=== PATIENT | male | born 1990 | race Caucasian/White ===

== ENCOUNTER 2018-03-08 22:47 | Emergency (ER) | payer OTHER ==
[~2018-03-08] VITALS: Ht 175.3 cm; Wt 63.5 kg
[~2018-03-08 22:47] MED LIST: AZIT250 PO; Bactrim Ds Tab1 EACH PO; CEPH500 PO; Cleocin HCl300 MG PO; DIPH25 PO; EPIN.3I IM; FAMO20 PO; IBUP600 PO; IBUP800 PO; Naprosyn500 MG PO; PERM5TC TOP; PRED10 PO; RXALBOI INH; Ultram50 MG PO
== END 2018-03-08 23:59 | disposition left against medical advice (07) ==
LOC: ER 22:47
DX: Z53.21 Procedure and treatment not carried out due to patient leaving prior to being seen by health care provider (principal)

== ENCOUNTER → 2018-09-26 | Outpatient (CLI) | payer OTHER ==
[~2018-09-26] MED LIST changes: +IBUP400 PO; +LEVFLO500 PO
[2018-09-27 23:11] LABS: CHLAMYDIA TRACHOMATIS, NAA Negative (Negative); NEISSERIA GONORRHOEAE, NAA Negative (Negative)
== END | disposition home or self-care (01) ==
LOC: LAB SHORT 10:43 → LAB 10:43
PROVIDERS: Family Medicine
DX: R30.0 Dysuria (principal); N50.819 Testicular pain, unspecified
CPT/HCPCS: 87491; 87591

== ENCOUNTER 2018-09-27 10:56 | Emergency (ER) | payer OTHER ==
[~2018-09-27] VITALS: Ht 170.2 cm; Wt 69.4 kg
[~2018-09-27 10:56] MED LIST changes: -IBUP400 PO; -LEVFLO500 PO
[2018-09-27] MEDS ORDERED: LEVFLO500 PO (12:32)
[2018-09-27] MEDS ORDERED: IBUP400 PO (12:32)
== END 2018-09-27 13:31 | disposition home or self-care (01) ==
LOC: ER 10:56
DX: N50.811 Right testicular pain (principal); N50.812 Left testicular pain; Z59.0 Homelessness; F17.210 Nicotine dependence, cigarettes, uncomplicated; Z91.038 Other insect allergy status; Z88.0 Allergy status to penicillin
CPT/HCPCS: 76870; 99284-25

== ENCOUNTER 2018-12-22 13:08 | Emergency (ER) | payer OTHER ==
[~2018-12-22] VITALS: Ht 167.6 cm; Wt 65.8 kg
[~2018-12-22 13:08] MED LIST changes: +IBUP400 PO; +LEVFLO500 PO
[2018-12-22] MEDS ORDERED: CEPH500 PO (13:41)
[2018-12-22] MEDS ORDERED: Bactrim Ds Tab1 EACH PO (13:41)
== END 2018-12-22 13:48 | disposition home or self-care (01) ==
LOC: ER 13:08
DX: L03.113 Cellulitis of right upper limb (principal); Z91.030 Bee allergy status; Z88.0 Allergy status to penicillin
CPT/HCPCS: 99282

== ENCOUNTER 2018-12-24 23:44 | Emergency (ER) | payer OTHER ==
[~2018-12-24] VITALS: Ht 170.2 cm; Wt 65.8 kg
[2018-12-25] MEDS ORDERED: Bactrim Ds Tab1 EACH PO (01:05)
[2018-12-25] MEDS ORDERED: CEPH500 PO (01:05)
== END 2018-12-25 01:15 | disposition home or self-care (01) ==
LOC: ER 23:44
DX: L03.113 Cellulitis of right upper limb (principal); Z91.030 Bee allergy status; Z88.0 Allergy status to penicillin
CPT/HCPCS: 99282

== ENCOUNTER 2019-01-24 13:51 | Emergency (ER) | payer OTHER ==
[~2019-01-24] VITALS: Ht 170.2 cm; Wt 67.1 kg
[2019-01-24] MEDS ORDERED: Vibramycin100 MG PO (15:57)
== END 2019-01-24 16:10 | disposition home or self-care (01) ==
LOC: ER 13:51
DX: L02.414 Cutaneous abscess of left upper limb (principal); L02.413 Cutaneous abscess of right upper limb; L03.114 Cellulitis of left upper limb; L03.113 Cellulitis of right upper limb; Z91.030 Bee allergy status; Z88.0 Allergy status to penicillin
CPT/HCPCS: 10060; 99282-25

== ENCOUNTER 2019-02-28 14:34 | Emergency (ER) | payer OTHER ==
[~2019-02-28] VITALS: Ht 170.2 cm; Wt 65.8 kg
[~2019-02-28 14:34] MED LIST changes: +Vibramycin100 MG PO
== END 2019-02-28 16:59 | disposition left against medical advice (07) ==
LOC: ER 14:34
DX: Z53.21 Procedure and treatment not carried out due to patient leaving prior to being seen by health care provider (principal); L08.9 Local infection of the skin and subcutaneous tissue, unspecified

== ENCOUNTER 2020-02-11 00:41 | Emergency (ER) | payer OTHER ==
[~2020-02-11] VITALS: Ht 170.2 cm; Wt 63.5 kg
== END 2020-02-11 02:52 | disposition home or self-care (01) ==
LOC: ER 00:41
DX: L50.0 Allergic urticaria (principal); Z91.030 Bee allergy status; Z88.0 Allergy status to penicillin
CPT/HCPCS: 36415; 96361; 96374; 96375; 99284-25; J1200; J2930; J7030

== ENCOUNTER 2020-07-30 01:40 | Emergency (ER) | payer OTHER ==
[~2020-07-30] VITALS: Ht 170.2 cm; Wt 64.0 kg
[2020-07-30 02:17] LABS: U Amphetamine Screen DETECTED; U Barbituate Screen Not Detected; U Benzodiazapine Screen Not Detected; U Buprenorphine Screen Not Detected; U Cannabinoids Screen DETECTED; U Cocaine Screen Not Detected; U Methadone Screen Not Detected; U Methamphetamine Screen DETECTED; U Opiates Screen DETECTED; U Oxycodone Screen Not Detected; U Phencyclidine Screen Not Detected; U Propoxyphene Screen Not Detected
[2020-07-30 02:17] LABS: BASOPHILS ABSOLUTE AUTO 0.03 K/mm3 (0.00-0.23); BASOPHILS PERCENT AUTO 0 % (0-2); EOSINOPHILS ABSOLUTE AUTO 0.02 K/mm3 (0.00-0.68); EOSINOPHILS PERCENT AUTO 0 % (0-6); Hemoglobin 15.1 g/dL (13.5-17.5); IMMATURE GRAN ABSOLUTE AUTO 0.02 K/mm3 (0.00-0.10); IMMATURE GRAN PERCENT AUTO 0 % (0-1); LYMPHOCYTES ABSOLUTE AUTO 2.42 K/mm3 (0.84-5.20); LYMPHOCYTES PERCENT AUTO 27 % (21-46); MONOCYTES ABSOLUTE AUTO 0.71 K/mm3 (0.16-1.47); MONOCYTES PERCENT AUTO 8 % (4-13); Mean Corpuscular HGB 31.7 pg (26.0-34.0); Mean Corpuscular HGB Conc 34.3 g/dL (31.5-36.5); Mean Corpuscular Volume 92 fL (80-100); Mean Platelet Volume 9.5 fL (9.1-12.4); NEUTROPHILS ABSOLUTE AUTO 5.73 K/mm3 (1.96-9.15); NEUTROPHILS PERCENT AUTO 64 % (41-73); Platelet Count 163 K/mm3 (150-400); RDW Coefficient Variation 11.9 % (11.7-14.2); RDW Standard Deviation 40.1 fL (35.1-46.3); Red Blood Cell Count 4.77 M/mm3 (4.30-5.90); White Blood Cell Count 8.93 K/mm3 (4.00-11.30)
[2020-07-30 02:37] LABS: Alanine Aminotransfer (ALT/SGP 77 U/L (12-78); Albumin, Blood 3.9 g/dL (3.4-5.0); Albumin/Globulin Ratio 1.1 (0.8-1.8); Alk Phos 54 U/L (50-136); Anion Gap 8 mmol/L (6-16); Aspartate Aminotrans (AST/SGOT 59 U/L (12-37); Blood Urea Nitrogen 20 mg/dL (8-24); CO2, Blood 25 mmol/L (21-32); Calcium, Blood 8.8 mg/dL (8.5-10.1); Chloride, Blood 107 mmol/L (98-108); Creatinine, Blood 0.84 mg/dL (0.60-1.20); Globulin, Blood 3.4 g/dL (2.2-4.0); Glomerular Filtration Rate >60 (60-); Glucose, Blood 102 mg/dL (70-99); Potassium, Blood 3.6 mmol/L (3.5-5.5); Sodium, Blood 140 mmol/L (136-145); Total Protein, Blood 7.3 g/dL (6.4-8.2); Troponin I <0.015 ng/mL (0.000-0.040)
[2020-07-30] MEDS ORDERED: topical cream (19:45)
[2020-07-30] MEDS ORDERED: NIX COMPLET324.86 ML MC (19:46)
== END 2020-07-30 02:56 | disposition home or self-care (01) ==
LOC: ER 01:40
PROVIDERS: Emergency Medicine
DX: T43.621A Poisoning by amphetamines, accidental (unintentional), initial encounter (principal); F19.10 Other psychoactive substance abuse, uncomplicated; Z91.030 Bee allergy status; Z88.0 Allergy status to penicillin
CPT/HCPCS: 36415; 71045; 80053; 84484; 85025; 93005; 93010; 96374; 99284-25; J2060; J7030

== ENCOUNTER 2020-07-30 18:54 | Emergency (ER) | payer OTHER ==
[~2020-07-30] VITALS: Ht 170.2 cm; Wt 65.8 kg
[2020-07-30] MEDS ORDERED: topical cream (19:45)
[2020-07-30] MEDS ORDERED: NIX COMPLET324.86 ML MC (19:46)
== END 2020-07-30 20:09 | disposition home or self-care (01) ==
LOC: ER 18:54
DX: R21 Rash and other nonspecific skin eruption (principal); Z91.030 Bee allergy status; Z88.0 Allergy status to penicillin
CPT/HCPCS: 99282

== ENCOUNTER 2020-08-06 17:18 | Emergency (ER) | payer OTHER ==
[~2020-08-06] VITALS: Ht 170.2 cm; Wt 63.5 kg
[~2020-08-06 17:18] MED LIST changes: +NIX COMPLET324.86 ML MC; +topical cream
[2020-08-06] MEDS ORDERED: ERYT1OIN RIGHTEYE (17:41)
== END 2020-08-06 18:00 | disposition home or self-care (01) ==
LOC: ER 17:18
DX: H10.31 Unspecified acute conjunctivitis, right eye (principal); B96.89 Other specified bacterial agents as the cause of diseases classified elsewhere; T15.91XA Foreign body on external eye, part unspecified, right eye, initial encounter; Y93.89 Activity, other specified
CPT/HCPCS: 99282

== ENCOUNTER 2021-08-06 22:34 | Emergency (ER) | payer OTHER ==
[~2021-08-06] VITALS: Ht 175.3 cm; Wt 63.5 kg
[~2021-08-06 22:34] MED LIST changes: +CLIN300 PO; +ERYT1OIN RIGHTEYE; +HYDR1TAB94 PO
[2021-08-06 22:52] LABS: BASOPHILS ABSOLUTE AUTO 0.02 K/mm3 (0.00-0.23); BASOPHILS PERCENT AUTO 0 % (0-2); EOSINOPHILS ABSOLUTE AUTO 0.09 K/mm3 (0.00-0.68); EOSINOPHILS PERCENT AUTO 2 % (0-6); Hematocrit 45.1 % (37.0-53.0); Hemoglobin 14.8 g/dL (13.5-17.5); IMMATURE GRAN ABSOLUTE AUTO 0.02 K/mm3 (0.00-0.10); IMMATURE GRAN PERCENT AUTO 0 % (0-1); LYMPHOCYTES ABSOLUTE AUTO 2.17 K/mm3 (0.84-5.20); LYMPHOCYTES PERCENT AUTO 39 % (21-46); MONOCYTES ABSOLUTE AUTO 0.43 K/mm3 (0.16-1.47); MONOCYTES PERCENT AUTO 8 % (4-13); Mean Corpuscular HGB 30.8 pg (26.0-34.0); Mean Corpuscular HGB Conc 32.8 g/dL (31.5-36.5); Mean Corpuscular Volume 94 fL (80-100); Mean Platelet Volume 9.2 fL (9.1-12.4); NEUTROPHILS PERCENT AUTO 51 % (41-73); Platelet Count 139 K/mm3 (150-400); RDW Coefficient Variation 12.8 % (11.7-14.2); RDW Standard Deviation 44.1 fL (35.1-46.3); Red Blood Cell Count 4.81 M/mm3 (4.30-5.90); White Blood Cell Count 5.53 K/mm3 (4.00-11.30)
[2021-08-06 23:14] LABS: U Amphetamine Screen DETECTED; U Barbituate Screen Not Detected; U Benzodiazapine Screen Not Detected; U Buprenorphine Screen Not Detected; U Cannabinoids Screen DETECTED; U Cocaine Screen Not Detected; U Methadone Screen Not Detected; U Methamphetamine Screen DETECTED; U Opiates Screen Not Detected; U Oxycodone Screen Not Detected; U Phencyclidine Screen Not Detected; U Propoxyphene Screen Not Detected
[2021-08-06 23:46] LABS: Alanine Aminotransfer (ALT/SGP 83 U/L (12-78); Albumin, Blood 3.5 g/dL (3.4-5.0); Albumin/Globulin Ratio 1.1 (0.8-1.8); Alk Phos 52 U/L (50-136); Anion Gap 7 mmol/L (6-16); Aspartate Aminotrans (AST/SGOT 45 U/L (12-37); Bilirubin, Total 0.5 mg/dL (0.1-1.0); Blood Urea Nitrogen 22 mg/dL (8-24); Bun/Creatinine Ratio 23.8 (12.0-20.0); CO2, Blood 28 mmol/L (21-32); Calcium, Blood 8.4 mg/dL (8.5-10.1); Chloride, Blood 111 mmol/L (98-108); Creatinine, Blood 0.92 mg/dL (0.60-1.20); Ethanol (Alcohol), Blood, Med <3 mg/dL; Globulin, Blood 3.1 g/dL (2.2-4.0); Glomerular Filtration Rate >60 (60-); Glucose, Blood 154 mg/dL (70-99); Potassium, Blood 3.6 mmol/L (3.5-5.5); Salicylate <1.7 mg/dL (2.8-20.0); Sodium, Blood 146 mmol/L (136-145); Total Protein, Blood 6.6 g/dL (6.4-8.2)
[2021-08-06 23:50] LABS: Acetaminophen, Random <2.0 ug/mL (10.0-30.0)
[2021-08-07 00:55] LABS: Influenza A, PCR NEGATIVE (NEGATIVE); Influenza B, PCR NEGATIVE (NEGATIVE); Resp Syncytial Virus, PCR NEGATIVE (NEGATIVE); SARS-Cov-2 (COVID-19) PCR, MMC NEGATIVE (NEGATIVE)
[2021-08-07] MEDS ORDERED: Zithromax250 MG PO (01:12)
== END 2021-08-07 02:13 | disposition home or self-care (01) ==
LOC: ER 22:34
PROVIDERS: Emergency Medicine
DX: F15.129 Other stimulant abuse with intoxication, unspecified (principal); J18.9 Pneumonia, unspecified organism; Z20.822 Contact with and (suspected) exposure to COVID-19; F17.210 Nicotine dependence, cigarettes, uncomplicated; Z88.0 Allergy status to penicillin
CPT/HCPCS: 0241U; 71045; 80053; 82947; 85025; 99284-25; A9270; G0480

== ENCOUNTER 2021-08-21 14:36 | Emergency (ER) | payer OTHER ==
[~2021-08-21] VITALS: Ht 175.3 cm; Wt 63.5 kg
[~2021-08-21 14:36] MED LIST changes: +Zithromax250 MG PO
[2021-08-21] MEDS ORDERED: Cleocin HCl150 MG PO (15:20)
== END 2021-08-21 15:45 | disposition home or self-care (01) ==
LOC: ER 14:36
DX: K04.7 Periapical abscess without sinus (principal); Z91.030 Bee allergy status; Z88.0 Allergy status to penicillin; Z79.899 Other long term (current) drug therapy; F17.210 Nicotine dependence, cigarettes, uncomplicated
CPT/HCPCS: 41800; 99282-25; A9270

== ENCOUNTER 2021-08-22 03:09 | Emergency (ER) | payer OTHER ==
[~2021-08-22] VITALS: Ht 172.7 cm; Wt 63.5 kg
[~2021-08-22 03:09] MED LIST changes: +Cleocin HCl150 MG PO
== END 2021-08-22 04:00 | disposition home or self-care (01) ==
LOC: ER 03:09
DX: K04.7 Periapical abscess without sinus (principal); K02.9 Dental caries, unspecified; Z88.0 Allergy status to penicillin; Z91.030 Bee allergy status; F17.210 Nicotine dependence, cigarettes, uncomplicated
CPT/HCPCS: 99282; A9270

== ENCOUNTER 2021-08-22 16:09 | Emergency (ER) | payer OTHER ==
[~2021-08-22] VITALS: Ht 170.2 cm; Wt 63.5 kg
[2021-08-22 16:31] LABS: BASOPHILS ABSOLUTE AUTO 0.03 K/mm3 (0.00-0.23); BASOPHILS PERCENT AUTO 0 % (0-2); EOSINOPHILS ABSOLUTE AUTO 0.03 K/mm3 (0.00-0.68); EOSINOPHILS PERCENT AUTO 0 % (0-6); Hematocrit 41.1 % (37.0-53.0); Hemoglobin 14.3 g/dL (13.5-17.5); IMMATURE GRAN ABSOLUTE AUTO 0.02 K/mm3 (0.00-0.10); IMMATURE GRAN PERCENT AUTO 0 % (0-1); LYMPHOCYTES ABSOLUTE AUTO 2.29 K/mm3 (0.84-5.20); LYMPHOCYTES PERCENT AUTO 28 % (21-46); MONOCYTES ABSOLUTE AUTO 0.53 K/mm3 (0.16-1.47); MONOCYTES PERCENT AUTO 7 % (4-13); Mean Corpuscular HGB Conc 34.8 g/dL (31.5-36.5); Mean Corpuscular Volume 89 fL (80-100); Mean Platelet Volume 9.3 fL (9.1-12.4); NEUTROPHILS ABSOLUTE AUTO 5.25 K/mm3 (1.96-9.15); NEUTROPHILS PERCENT AUTO 64 % (41-73); Platelet Count 212 K/mm3 (150-400); RDW Coefficient Variation 12.4 % (11.7-14.2); RDW Standard Deviation 40.2 fL (35.1-46.3); Red Blood Cell Count 4.61 M/mm3 (4.30-5.90); White Blood Cell Count 8.15 K/mm3 (4.00-11.30)
[2021-08-22 16:45] LABS: International Normalized Ratio 0.97; Prothrombin Time Results 10.2 Sec (9.7-11.5)
[2021-08-22 16:48] LABS: Alanine Aminotransfer (ALT/SGP 66 U/L (12-78); Albumin, Blood 3.6 g/dL (3.4-5.0); Albumin/Globulin Ratio 1.1 (0.8-1.8); Alk Phos 60 U/L (50-136); Anion Gap 7 mmol/L (6-16); Aspartate Aminotrans (AST/SGOT 37 U/L (12-37); Blood Urea Nitrogen 21 mg/dL (8-24); Bun/Creatinine Ratio 18.8 (12.0-20.0); CO2, Blood 22 mmol/L (21-32); Calcium, Blood 8.5 mg/dL (8.5-10.1); Chloride, Blood 109 mmol/L (98-108); Creatinine, Blood 1.12 mg/dL (0.60-1.20); Ethanol (Alcohol), Blood, Med <3 mg/dL; Globulin, Blood 3.4 g/dL (2.2-4.0); Glomerular Filtration Rate >60 (60-); Glucose, Blood 173 mg/dL (70-99); Potassium, Blood 3.7 mmol/L (3.5-5.5); Sodium, Blood 138 mmol/L (136-145)
[2021-08-22 19:18] LABS: Influenza A, PCR NEGATIVE (NEGATIVE); Influenza B, PCR NEGATIVE (NEGATIVE); Resp Syncytial Virus, PCR NEGATIVE (NEGATIVE); SARS-Cov-2 (COVID-19) PCR, MMC NEGATIVE (NEGATIVE)
== END 2021-08-22 19:25 | disposition short-term general hospital (02) ==
LOC: ER 16:09
PROVIDERS: Student in an Organized Health Care Education/Training Program
DX: S02.611A Fracture of condylar process of right mandible, initial encounter for closed fracture (principal); S01.03XA Puncture wound without foreign body of scalp, initial encounter; S51.841A Puncture wound with foreign body of right forearm, initial encounter; S61.512A Laceration without foreign body of left wrist, initial encounter; S11.91XA Laceration without foreign body of unspecified part of neck, initial encounter; X95.9XXA Assault by unspecified firearm discharge, initial encounter; F17.200 Nicotine dependence, unspecified, uncomplicated; Z88.0 Allergy status to penicillin; Z91.030 Bee allergy status
CPT/HCPCS: 0241U; 12001; 70450; 70486; 70498; 71260; 72125; 73090; 73100; 74177; 80053; 85025; 85610; 90471; 90714; 96365; 99291-25; G0390; G0480; J7120; Q9967

== ENCOUNTER 2021-09-13 04:32 | Emergency (ER) | payer OTHER ==
[~2021-09-13] VITALS: Ht 180.3 cm; Wt 63.5 kg
[2021-09-13] MEDS ORDERED: CLIN150 PO (07:29)
== END 2021-09-13 10:33 | disposition home or self-care (01) ==
LOC: ER 04:32
DX: K04.7 Periapical abscess without sinus (principal); F17.210 Nicotine dependence, cigarettes, uncomplicated; Z88.0 Allergy status to penicillin; Z91.030 Bee allergy status
CPT/HCPCS: 99283; A9270

== ENCOUNTER 2021-11-18 20:15 | Emergency (ER) | payer OTHER ==
[~2021-11-18] VITALS: Ht 175.3 cm; Wt 65.8 kg
[~2021-11-18 20:15] MED LIST changes: +CLIN150 PO
[2021-11-18] MEDS ORDERED: KETO10 PO (21:05)
[2021-11-22] MEDS ORDERED: IBUP800 PO (19:24)
== END 2021-11-18 21:32 | disposition home or self-care (01) ==
LOC: ER 20:15
DX: M77.8 Other enthesopathies, not elsewhere classified (principal); Z91.030 Bee allergy status; Z88.0 Allergy status to penicillin; F17.210 Nicotine dependence, cigarettes, uncomplicated
CPT/HCPCS: 29125; 73110; 96372; 99283-25; J1885

== ENCOUNTER 2022-02-27 15:21 | Emergency (ER) | payer OTHER ==
[~2022-02-27] VITALS: Ht 165.1 cm; Wt 56.7 kg
[~2022-02-27 15:21] MED LIST changes: +KETO10 PO
[2022-02-27] MEDS ORDERED: CLIN150 PO (15:44)
[2022-02-27] MEDS ORDERED: IBU800 MG PO (15:44)
== END 2022-02-27 16:20 | disposition home or self-care (01) ==
LOC: ER 15:21
DX: K02.9 Dental caries, unspecified (principal); F17.210 Nicotine dependence, cigarettes, uncomplicated; Z88.0 Allergy status to penicillin; Z91.038 Other insect allergy status
CPT/HCPCS: 99282

== ENCOUNTER 2022-07-03 17:38 | Emergency (ER) | payer OTHER ==
[~2022-07-03] VITALS: Ht 180.3 cm; Wt 65.8 kg
[~2022-07-03 17:38] MED LIST changes: +IBU800 MG PO
[2022-07-03 18:18] LABS: BASOPHILS ABSOLUTE AUTO 0.02 K/mm3 (0.00-0.23); BASOPHILS PERCENT AUTO 0 % (0-2); EOSINOPHILS ABSOLUTE AUTO 0.01 K/mm3 (0.00-0.68); EOSINOPHILS PERCENT AUTO 0 % (0-6); Hematocrit 40.8 % (37.0-53.0); Hemoglobin 14.3 g/dL (13.5-17.5); IMMATURE GRAN ABSOLUTE AUTO 0.04 K/mm3 (0.00-0.10); IMMATURE GRAN PERCENT AUTO 0 % (0-1); LYMPHOCYTES ABSOLUTE AUTO 1.72 K/mm3 (0.84-5.20); LYMPHOCYTES PERCENT AUTO 14 % (21-46); MONOCYTES ABSOLUTE AUTO 0.88 K/mm3 (0.16-1.47); MONOCYTES PERCENT AUTO 7 % (4-13); Mean Corpuscular HGB 31.1 pg (26.0-34.0); Mean Corpuscular Volume 89 fL (80-100); Mean Platelet Volume 9.2 fL (9.1-12.4); NEUTROPHILS ABSOLUTE AUTO 10.07 K/mm3 (1.96-9.15); NEUTROPHILS PERCENT AUTO 79 % (41-73); Platelet Count 166 K/mm3 (150-400); RDW Coefficient Variation 12.3 % (11.7-14.2); RDW Standard Deviation 39.8 fL (35.1-46.3); White Blood Cell Count 12.74 K/mm3 (4.00-11.30)
[2022-07-03 18:33] LABS: Albumin, Blood 3.7 g/dL (3.4-5.0); Albumin/Globulin Ratio 1.1 (0.8-1.8); Bilirubin, Total 1.6 mg/dL (0.1-1.0); Bun/Creatinine Ratio 12.5 (12.0-20.0); Calcium, Blood 8.7 mg/dL (8.5-10.1); Creatinine, Blood 0.88 mg/dL (0.60-1.20); Globulin, Blood 3.5 g/dL (2.2-4.0); Potassium, Blood 3.9 mmol/L (3.5-5.5); Total Protein, Blood 7.2 g/dL (6.4-8.2)
[2022-07-03] MEDS ORDERED: CEPH500 PO (22:45)
== END 2022-07-03 23:11 | disposition home or self-care (01) ==
LOC: ER 17:38
PROVIDERS: Physician Assistant
DX: L03.114 Cellulitis of left upper limb (principal); F17.210 Nicotine dependence, cigarettes, uncomplicated; Z88.0 Allergy status to penicillin; Z91.030 Bee allergy status
CPT/HCPCS: 36415; 73200; 80053; 85025; J0690; J0696

== ENCOUNTER 2022-07-05 14:09 | Inpatient (IN) | payer OTHER ==
[~2022-07-05] VITALS: Ht 180.3 cm; Wt 64.0 kg
[2022-07-05 15:23] LABS: BASOPHILS ABSOLUTE AUTO 0.02 K/mm3 (0.00-0.23); BASOPHILS PERCENT AUTO 0 % (0-2); EOSINOPHILS ABSOLUTE AUTO 0.06 K/mm3 (0.00-0.68); EOSINOPHILS PERCENT AUTO 1 % (0-6); Hematocrit 40.3 % (37.0-53.0); Hemoglobin 13.5 g/dL (13.5-17.5); IMMATURE GRAN ABSOLUTE AUTO 0.02 K/mm3 (0.00-0.10); IMMATURE GRAN PERCENT AUTO 0 % (0-1); LYMPHOCYTES ABSOLUTE AUTO 1.87 K/mm3 (0.84-5.20); LYMPHOCYTES PERCENT AUTO 21 % (21-46); MONOCYTES ABSOLUTE AUTO 0.64 K/mm3 (0.16-1.47); MONOCYTES PERCENT AUTO 7 % (4-13); Mean Corpuscular HGB 30.3 pg (26.0-34.0); Mean Corpuscular HGB Conc 33.5 g/dL (31.5-36.5); Mean Corpuscular Volume 91 fL (80-100); Mean Platelet Volume 9.7 fL (9.1-12.4); NEUTROPHILS ABSOLUTE AUTO 6.44 K/mm3 (1.96-9.15); NEUTROPHILS PERCENT AUTO 71 % (41-73); Platelet Count 148 K/mm3 (150-400); RDW Coefficient Variation 12.4 % (11.7-14.2); RDW Standard Deviation 41.5 fL (35.1-46.3); Red Blood Cell Count 4.45 M/mm3 (4.30-5.90); White Blood Cell Count 9.05 K/mm3 (4.00-11.30)
[2022-07-05 15:43] LABS: C-REACTIVE PROTEIN, EXT RANGE 9.72 mg/dL (0.000-0.300)
[2022-07-05 15:45] LABS: Albumin, Blood 3.1 g/dL (3.4-5.0); Albumin/Globulin Ratio 0.8 (0.8-1.8); Bilirubin, Total 0.8 mg/dL (0.1-1.0); Bun/Creatinine Ratio 12.1 (12.0-20.0); Calcium, Blood 8.4 mg/dL (8.5-10.1); Creatinine, Blood 0.91 mg/dL (0.60-1.20); Globulin, Blood 3.7 g/dL (2.2-4.0); Potassium, Blood 3.8 mmol/L (3.5-5.5); Total Protein, Blood 6.8 g/dL (6.4-8.2)
--- NOTE | 2022-07-06 01:30 | NUR ---
PT ADMITTED TO FLOOR FROM ER - PT AMBULATORY TO MEDICAL FLOOR BED. PT CHANGED INTO MEDICAL FLOOR GOWN. PT REPORTS HE IS HOMELESS, AND THOUGHT HIS "JACKET MIGHT HAVE FLEAS ON IT." GOWNED UP IN YELLOW GOWN, AND PULLED PT'S JACKET OUT - NO FLEAS SEEN, ALSO PT IS WITHOUT BITES, OR FLEAS PRESENT ON PT. PT'S LEFT ARM IS EDEMATOUS, 1/2 DOLLAR SIZE RED AREA AT LEFT AC SITE. PT REPORTS HE HAS BEEN USING METH SINCE HE WAS 14 YEARS OLD. PT REPORTED CHEST PAIN, AND LEFT ARM PAIN DURING ASSESSMENT, BUT BY THE END OF THE INTERVENTIONS/ASSESSMENT - PT DENIED ANY CHEST PAIN. HE CONTINUED TO REPORT LEFT ARM PAIN - WILL MEDICATE PER EMAR. PT REPORTS MINIMAL SOB - SEE FOLLOW UP VS - SATS WNL ON RA, NO S/S OF RESPIRATORY DISTRESS. PT DENIED ANY OTHER S/S OF CHEST PAIN. PT REPORTED HE DEVELOPED NAUSEA IN ER, AFTER IV ANTIBIOTIC GIVEN. WILL ADMINISTER PO ZOFRAN PRIOR TO IV ANTIBIOTIC ADMINISTRATION PER EMAR. CALL LIGHT WITHIN REACH. FLUIDS AT BEDSIDE. BED IN LOW POSITION.
--- NOTE | 2022-07-06 03:50 | NUR ---
PT AWOKE SCREAMING, REPORTED HE WAS HAVING A NIGHTMARE. AFTER HE AWOKE, HE WAS ABLE TO CALM HINSELF DOWN. HE REPORTS A HISTORY OF NIGHTMARES. NO REQUESTS AT THIS TIME, "I AM FINE." CALL LIGHT AND FLUIDS WITHIN REACH. BED IN LOW POSITION.
--- NOTE | 2022-07-06 04:44 | NUR ---
PT DOES NOT NEED TO BE ISOLATION FOR MERSA - HISTORY OF MERSA APPX 6-7 YEARS AGO, PER PT - AND NO OPEN WOUNDS. REVIEWED THIS INFORMATION WITH LELAND WALLACE.
[2022-07-06 04:58] LABS: BASOPHILS ABSOLUTE AUTO 0.02 K/mm3 (0.00-0.23); BASOPHILS PERCENT AUTO 0 % (0-2); EOSINOPHILS ABSOLUTE AUTO 0.06 K/mm3 (0.00-0.68); EOSINOPHILS PERCENT AUTO 1 % (0-6); Hematocrit 38.5 % (37.0-53.0); Hemoglobin 13.3 g/dL (13.5-17.5); IMMATURE GRAN PERCENT AUTO 0 % (0-1); LYMPHOCYTES ABSOLUTE AUTO 2.03 K/mm3 (0.84-5.20); LYMPHOCYTES PERCENT AUTO 33 % (21-46); MONOCYTES ABSOLUTE AUTO 0.58 K/mm3 (0.16-1.47); MONOCYTES PERCENT AUTO 10 % (4-13); Mean Corpuscular HGB 31.2 pg (26.0-34.0); Mean Corpuscular HGB Conc 34.5 g/dL (31.5-36.5); Mean Corpuscular Volume 90 fL (80-100); Mean Platelet Volume 9.6 fL (9.1-12.4); NEUTROPHILS ABSOLUTE AUTO 3.44 K/mm3 (1.96-9.15); NEUTROPHILS PERCENT AUTO 56 % (41-73); Platelet Count 145 K/mm3 (150-400); RDW Coefficient Variation 12.8 % (11.7-14.2); RDW Standard Deviation 41.9 fL (35.1-46.3); Red Blood Cell Count 4.26 M/mm3 (4.30-5.90); White Blood Cell Count 6.13 K/mm3 (4.00-11.30)
[2022-07-06 05:15] LABS: Bun/Creatinine Ratio 11.9 (12.0-20.0); Calcium, Blood 8.6 mg/dL (8.5-10.1); Creatinine, Blood 0.84 mg/dL (0.60-1.20); Potassium, Blood 3.8 mmol/L (3.5-5.5)
--- NOTE | 2022-07-06 05:19 | NUR ---
SHIFT SUMMARY - NO ACUTE CHANGES SINCE ADMIT LAST NOC. PT AWOKE WITH A NIGHTMARE TONIGHT, BUT WAS ABLE TO CALM HIMSELF AFTER HE WAS FULLY AWAKE. PT HAS A HISTORY OF METH ABUSE. PT DID REPORT CHEST PAIN, BUT THEN DENIED ANY CHEST PAIN AT END OF ASSESSMENT. PT MEDICATED X1 WITH TYLENOL - SEE EMAR. PT TOLERATED PO FLUIDS/FOOD WITHOUT COMPLICATIONS. PT HAS BEEN SLEEPING FOR APPX 2 HOURS TONIGHT. CALL LIGHT WITHIN REACH. BED IN LOW POSITION. FLUIDS AT BEDSIDE. WILL CONTINUE TO MONITOR UNTIL AM SHIFT CHANGE.
[2022-07-06 07:38] LABS: U Amphetamine Screen DETECTED; U Barbituate Screen Not Detected; U Benzodiazapine Screen Not Detected; U Buprenorphine Screen Not Detected; U Cannabinoids Screen DETECTED; U Cocaine Screen Not Detected; U Methadone Screen Not Detected; U Methamphetamine Screen DETECTED; U Opiates Screen Not Detected; U Oxycodone Screen Not Detected; U Phencyclidine Screen Not Detected; U Propoxyphene Screen Not Detected
--- NOTE | 2022-07-06 16:00 | NUR ---
PT LEFT AMA 1414- PT HAD BEEN A/O X4, VERBAL AND PLEASANT, INTERACTING APPROPRIATE WITH STAFF ALL AM UNTIL APPROX 1300, PT ASKED RN TO MAKE HIM A CONFIDENTIAL PT- HE STATED "IF SOMEONE WAS GOING TO COME KILL ME, WOULD THE NURSES LET ME KNOW?" RN ASKED IF HE HAD ENEMIES THAT ARE LOOKING FOR HIM. HE SAID "I DONT KNOW, JUST PEOPLE THAT MAY HAVE THOUGHT I DID SOMETHING I DIDN'T DO". ABOUT AN HOUR LATER PT CAME OUT INTO [place] UPSET "IM LEAVING- IM SICK OF BEING MIND FUCKED- I KNOW THERE IS A PLAN- THEY WILL PROBABLY JUST SHOOT ME IM WALKING OUTSIDE- BUT IM READY TO ." KESHIA WENT TO GET AMA FORM HE STATED HE WOULD SIGN, BUT THAN SAID IM OUR OF HERE AND STARTED OUT- REDIRECTED TO ELEVATOR. THREW SHIRT IN THE TRASH AND LEFT WITHOUT SIGNING FORM. RN HAD A CHANCE TO GET IV OUT BEFORE HE LEFT. RN NOTIFIED MED STUDENT AND CHARTING CLERK. ALSO CALLED SECURITY AND MADE A REPORT.
== END 2022-07-06 14:17 | disposition left against medical advice (07) | DRG 867 ==
LOC: ER 14:09 → MEDS 14:10
PROVIDERS: Family Medicine; Internal Medicine; Physician Assistant; ADMIT Internal Medicine
DX: T80.29XA Infection following other infusion, transfusion and therapeutic injection, initial encounter (principal); A41.9 Sepsis, unspecified organism; L03.114 Cellulitis of left upper limb; I82.612 Acute embolism and thrombosis of superficial veins of left upper extremity; B19.20 Unspecified viral hepatitis C without hepatic coma; F15.10 Other stimulant abuse, uncomplicated; F22 Delusional disorders; F17.210 Nicotine dependence, cigarettes, uncomplicated; F12.10 Cannabis abuse, uncomplicated; Z20.822 Contact with and (suspected) exposure to COVID-19; Z59.00 Homelessness unspecified; Z98.890 Other specified postprocedural states; Z88.0 Allergy status to penicillin; Z91.038 Other insect allergy status; Z71.51 Drug abuse counseling and surveillance of drug abuser; Z79.2 Long term (current) use of antibiotics; Z79.899 Other long term (current) drug therapy
CPT/HCPCS: 36415; 71260; 73201; 80048; 80053; 83605; 84145; 84484; 85025; 86140; 93005; 93010; 93971; 96376; A9270; G0378; J0690; Q9967

== ENCOUNTER 2022-07-07 09:30 | Observation (INO) | payer OTHER ==
[~2022-07-07] VITALS: Ht 180.3 cm; Wt 63.6 kg
[2022-07-07 10:44] LABS: BASOPHILS ABSOLUTE AUTO 0.02 K/mm3 (0.00-0.23); BASOPHILS PERCENT AUTO 0 % (0-2); EOSINOPHILS ABSOLUTE AUTO 0.07 K/mm3 (0.00-0.68); EOSINOPHILS PERCENT AUTO 1 % (0-6); Hematocrit 46.1 % (37.0-53.0); Hemoglobin 15.2 g/dL (13.5-17.5); IMMATURE GRAN ABSOLUTE AUTO 0.01 K/mm3 (0.00-0.10); IMMATURE GRAN PERCENT AUTO 0 % (0-1); LYMPHOCYTES ABSOLUTE AUTO 1.62 K/mm3 (0.84-5.20); LYMPHOCYTES PERCENT AUTO 24 % (21-46); MONOCYTES ABSOLUTE AUTO 0.53 K/mm3 (0.16-1.47); MONOCYTES PERCENT AUTO 8 % (4-13); Mean Corpuscular HGB 30.3 pg (26.0-34.0); Mean Corpuscular Volume 92 fL (80-100); Mean Platelet Volume 9.3 fL (9.1-12.4); NEUTROPHILS ABSOLUTE AUTO 4.65 K/mm3 (1.96-9.15); NEUTROPHILS PERCENT AUTO 67 % (41-73); Platelet Count 188 K/mm3 (150-400); RDW Coefficient Variation 12.4 % (11.7-14.2); RDW Standard Deviation 42.1 fL (35.1-46.3); Red Blood Cell Count 5.02 M/mm3 (4.30-5.90)
[2022-07-07 11:57] LABS: Albumin, Blood 3.4 g/dL (3.4-5.0); Albumin/Globulin Ratio 0.8 (0.8-1.8); Bun/Creatinine Ratio 12.5 (12.0-20.0); Calcium, Blood 9.9 mg/dL (8.5-10.1); Creatinine, Blood 0.72 mg/dL (0.60-1.20); Globulin, Blood 4.2 g/dL (2.2-4.0); Total Protein, Blood 7.6 g/dL (6.4-8.2)
--- NOTE | 2022-07-07 15:10 | NUR ---
PT ARRIVED TO UNIT FROM ER PT ABLE TO SELF TRANSFER TO BED FROM , C/O PAIN PLAN TO CONTACT PT ORIENTED TO ROOM/CALL LIGHT.
--- NOTE | 2022-07-07 19:39 | NUR ---
SHIFT SUMMARY PT A&OX4 AND IN PLEASENT MOOD. C/O PAIN-MEDICATED PER EMAR-PT C/O CONTINUED PAIN. TOLERATING PO INTAKE WELL. SHOWERED THIS SHIFT. AMBULATING IND W/ STEADY GAIT. CALL LIGHT W/IN REACH.
== END 2022-07-08 03:17 | disposition left against medical advice (07) ==
LOC: ER 09:30 → MEDS 09:31
PROVIDERS: Physician Assistant; ADMIT Internal Medicine
DX: A41.9 Sepsis, unspecified organism (principal); L03.114 Cellulitis of left upper limb; I80.8 Phlebitis and thrombophlebitis of other sites; F17.210 Nicotine dependence, cigarettes, uncomplicated; B19.20 Unspecified viral hepatitis C without hepatic coma; F15.10 Other stimulant abuse, uncomplicated; Z53.29 Procedure and treatment not carried out because of patient's decision for other reasons; Z88.0 Allergy status to penicillin; Z91.038 Other insect allergy status
CPT/HCPCS: 36415; 80053; 85025; 96375; 96376; A9270; G0378; J0690; J1885

== ENCOUNTER 2022-08-11 19:27 | Emergency (ER) | payer OTHER ==
[~2022-08-11] VITALS: Ht 170.2 cm; Wt 63.5 kg
[2022-08-11 20:25] LABS: Influenza A, PCR NEGATIVE (NEGATIVE); Influenza B, PCR NEGATIVE (NEGATIVE); Resp Syncytial Virus, PCR NEGATIVE (NEGATIVE); SARS-Cov-2 (COVID-19) PCR, MMC NEGATIVE (NEGATIVE)
== END 2022-08-11 22:36 | disposition home or self-care (01) ==
LOC: ER 19:27
PROVIDERS: Physician Assistant
DX: J06.9 Acute upper respiratory infection, unspecified (principal); F17.210 Nicotine dependence, cigarettes, uncomplicated; Z88.0 Allergy status to penicillin; Z91.030 Bee allergy status; Z20.822 Contact with and (suspected) exposure to COVID-19
CPT/HCPCS: 0241U; A9270

== ENCOUNTER 2023-06-05 14:54 | Emergency (ER) | payer OTHER ==
[~2023-06-05] VITALS: Ht 162.6 cm; Wt 65.8 kg
[2023-06-05 15:02] VITALS: BP 135/62
== END 2023-06-05 15:08 | disposition home or self-care (01) ==
LOC: ER 14:54
DX: Z02.89 Encounter for other administrative examinations (principal); F17.210 Nicotine dependence, cigarettes, uncomplicated; Z91.038 Other insect allergy status; Z88.0 Allergy status to penicillin
CPT/HCPCS: 99282

== ENCOUNTER 2023-09-27 19:38 | Emergency (ER) | payer OTHER ==
[~2023-09-27] VITALS: Ht 167.6 cm; Wt 65.8 kg
[2023-09-27 20:36] VITALS: BP 139/104
[2023-09-27] MEDS ORDERED: Ketorolac Tromethamine 30mg Vial IV ONE (21:15)
[2023-09-27] MEDS ORDERED: Clindamycin 600mg in D5W 50 ML IV ONE (21:15)
[2023-09-27 21:22] LABS: BASOPHILS ABSOLUTE AUTO 0.03 K/mm3 (0.00-0.23); BASOPHILS PERCENT AUTO 0 % (0-2); EOSINOPHILS ABSOLUTE AUTO 0.07 K/mm3 (0.00-0.68); EOSINOPHILS PERCENT AUTO 1 % (0-6); Hemoglobin 14.2 g/dL (13.5-17.5); IMMATURE GRAN ABSOLUTE AUTO 0.02 K/mm3 (0.00-0.10); IMMATURE GRAN PERCENT AUTO 0 % (0-1); LYMPHOCYTES ABSOLUTE AUTO 2.21 K/mm3 (0.84-5.20); LYMPHOCYTES PERCENT AUTO 29 % (21-46); MONOCYTES ABSOLUTE AUTO 0.58 K/mm3 (0.16-1.47); MONOCYTES PERCENT AUTO 8 % (4-13); Mean Corpuscular HGB 30.1 pg (26.0-34.0); Mean Corpuscular HGB Conc 34.6 g/dL (31.5-36.5); Mean Corpuscular Volume 87 fL (80-100); Mean Platelet Volume 9.2 fL (9.1-12.4); NEUTROPHILS ABSOLUTE AUTO 4.63 K/mm3 (1.96-9.15); NEUTROPHILS PERCENT AUTO 61 % (41-73); Platelet Count 189 K/mm3 (150-400); RDW Coefficient Variation 12.1 % (11.7-14.2); RDW Standard Deviation 38.5 fL (35.1-46.3); Red Blood Cell Count 4.72 M/mm3 (4.30-5.90); White Blood Cell Count 7.54 K/mm3 (4.00-11.30)
[2023-09-27 21:40] LABS: Albumin, Blood 3.5 g/dL (3.4-5.0); Albumin/Globulin Ratio 0.9 (0.8-1.8); Bilirubin, Total 0.8 mg/dL (0.1-1.0); Bun/Creatinine Ratio 22.4 (12.0-20.0); Calcium, Blood 8.8 mg/dL (8.5-10.1); Creatinine, Blood 0.76 mg/dL (0.60-1.20); Globulin, Blood 3.7 g/dL (2.2-4.0); Total Protein, Blood 7.2 g/dL (6.4-8.2)
[2023-09-27] MEDS ORDERED: Cleocin HCl150 MG PO (21:47)
== END 2023-09-27 23:06 | disposition home or self-care (01) ==
LOC: ER 19:38
PROVIDERS: Physician Assistant
DX: L03.113 Cellulitis of right upper limb (principal); F17.210 Nicotine dependence, cigarettes, uncomplicated; Z88.0 Allergy status to penicillin; Z91.030 Bee allergy status
CPT/HCPCS: 80053; 85025; 96374; 96375; 99283-25; J1885

== ENCOUNTER 2023-09-28 21:09 | Emergency (ER) | payer OTHER ==
[~2023-09-28] VITALS: Ht 170.2 cm; Wt 65.8 kg
[2023-09-28 21:14] VITALS: BP 131/81
[2023-09-28] MEDS ORDERED: Clindamycin HCl 150 MG Cap PO ONE (21:20)
[2023-09-28] MEDS ORDERED: Ketorolac Tromethamine 30mg Vial IM ONE (21:20)
== END 2023-09-28 21:44 | disposition home or self-care (01) ==
LOC: ER 21:09
DX: Z76.0 Encounter for issue of repeat prescription (principal); L03.113 Cellulitis of right upper limb; L03.011 Cellulitis of right finger; Z87.891 Personal history of nicotine dependence; Z88.0 Allergy status to penicillin; Z91.030 Bee allergy status
CPT/HCPCS: 96372; 99281-25; A9270; J1885

== ENCOUNTER 2023-11-28 10:14 | Emergency (ER) | payer OTHER ==
[~2023-11-28] VITALS: Ht 170.2 cm; Wt 65.8 kg
[~2023-11-28 10:14] MED LIST changes: +SULTRIDS PO
[2023-11-28 10:30] VITALS: BP 126/89
[2023-11-28] MEDS ORDERED: Bactrim Ds Tab1 EACH PO (10:53)
== END 2023-11-28 11:01 | disposition home or self-care (01) ==
LOC: ER 10:14
DX: L03.113 Cellulitis of right upper limb (principal); F17.210 Nicotine dependence, cigarettes, uncomplicated; Z91.038 Other insect allergy status; Z88.0 Allergy status to penicillin; Z75.8 Other problems related to medical facilities and other health care
CPT/HCPCS: 99282

== ENCOUNTER 2023-12-12 21:26 | Emergency (ER) | payer OTHER ==
[~2023-12-12] VITALS: Ht 170.2 cm; Wt 63.5 kg
[2023-12-12 21:45] VITALS: BP 128/91
[2023-12-12 22:45] LABS: BASOPHILS ABSOLUTE AUTO 0.02 K/mm3 (0.00-0.23); BASOPHILS PERCENT AUTO 0 % (0-2); EOSINOPHILS ABSOLUTE AUTO 0.05 K/mm3 (0.00-0.68); EOSINOPHILS PERCENT AUTO 1 % (0-6); Hemoglobin 15.1 g/dL (13.5-17.5); IMMATURE GRAN ABSOLUTE AUTO 0.01 K/mm3 (0.00-0.10); IMMATURE GRAN PERCENT AUTO 0 % (0-1); LYMPHOCYTES ABSOLUTE AUTO 2.25 K/mm3 (0.84-5.20); LYMPHOCYTES PERCENT AUTO 36 % (21-46); MONOCYTES ABSOLUTE AUTO 0.56 K/mm3 (0.16-1.47); MONOCYTES PERCENT AUTO 9 % (4-13); Mean Corpuscular HGB 29.9 pg (26.0-34.0); Mean Corpuscular HGB Conc 34.3 g/dL (31.5-36.5); Mean Corpuscular Volume 87 fL (80-100); Mean Platelet Volume 9.4 fL (9.1-12.4); NEUTROPHILS ABSOLUTE AUTO 3.33 K/mm3 (1.96-9.15); NEUTROPHILS PERCENT AUTO 54 % (41-73); Platelet Count 208 K/mm3 (150-400); RDW Coefficient Variation 14.1 % (11.7-14.2); RDW Standard Deviation 44.7 fL (35.1-46.3); Red Blood Cell Count 5.05 M/mm3 (4.30-5.90); White Blood Cell Count 6.22 K/mm3 (4.00-11.30)
[2023-12-12 23:13] LABS: Albumin, Blood 3.9 g/dL (3.4-5.0); Albumin/Globulin Ratio 1.1 (0.8-1.8); Bilirubin, Total 1.1 mg/dL (0.1-1.0); Bun/Creatinine Ratio 17.4 (12.0-20.0); Creatinine, Blood 0.98 mg/dL (0.60-1.20); Globulin, Blood 3.4 g/dL (2.2-4.0); Potassium, Blood 3.8 mmol/L (3.5-5.5); Total Protein, Blood 7.3 g/dL (6.4-8.2)
[2023-12-12] MEDS ORDERED: Ketorolac Tromethamine 10 MG Tab PO ONE (23:35)
== END 2023-12-12 23:53 | disposition home or self-care (01) ==
LOC: ER 21:26
PROVIDERS: Nurse Practitioner
DX: R51.9 Headache, unspecified (principal); F17.210 Nicotine dependence, cigarettes, uncomplicated; Z88.0 Allergy status to penicillin; Z91.030 Bee allergy status
CPT/HCPCS: 80053; 85025; 99283; A9270

== ENCOUNTER 2023-12-19 07:40 | Inpatient (IN) | payer OTHER ==
[2023-12-19] VITALS (28 sets, daily range): BP systolic 90–123; BP diastolic 48–79
[~2023-12-19] VITALS: Ht 170.2 cm; Wt 67.1 kg
[2023-12-19] MEDS ORDERED: NS 1,000 ML IV SCH ×3 (08:25→15:00)
[2023-12-19] MEDS ORDERED: Ondansetron HCl 2 MG / ML 2ML Vial IV ONE (08:25)
[2023-12-19] MEDS ORDERED: Ketorolac Tromethamine 30mg Vial IV ONE (09:05)
[2023-12-19 09:25] LABS: Hemoglobin 14.1 g/dL (13.5-17.5); Mean Corpuscular HGB 29.7 pg (26.0-34.0); Mean Corpuscular HGB Conc 33.6 g/dL (31.5-36.5); Mean Corpuscular Volume 88 fL (80-100); Mean Platelet Volume 9.7 fL (9.1-12.4); Platelet Count 118 K/mm3 (150-400); RDW Coefficient Variation 13.8 % (11.7-14.2); RDW Standard Deviation 44.8 fL (35.1-46.3); Red Blood Cell Count 4.75 M/mm3 (4.30-5.90); White Blood Cell Count 13.59 K/mm3 (4.00-11.30)
[2023-12-19 09:46] LABS: BAND PERCENT MAN 14 % (0-8); BASOPHILS PERCENT MAN 0 % (0-2); EOSINOPHILS PERCENT MAN 0 % (0-6); LYMPHOCYTES ABSOLUTE MAN 0.54 K/mm3 (0.84-5.20); LYMPHOCYTES PERCENT MAN 4 % (21-46); MONOCYTES ABSOLUTE MAN 0.95 K/mm3 (0.16-1.47); MONOCYTES PERCENT MAN 7 % (4-13); NEUTROPHILS ABSOLUTE MAN 12.09 K/mm3 (1.96-9.15); SEG NEUTROPHILS PERCENT MAN 75 % (41-73); TOTAL CELLS COUNTED 100
[2023-12-19 09:50] LABS: Albumin, Blood 3.4 g/dL (3.4-5.0); Bilirubin, Total 2.6 mg/dL (0.1-1.0); Bun/Creatinine Ratio 17.9 (12.0-20.0); Calcium, Blood 8.4 mg/dL (8.5-10.1); Creatinine, Blood 1.17 mg/dL (0.60-1.20); Globulin, Blood 3.3 g/dL (2.2-4.0); Total Protein, Blood 6.7 g/dL (6.4-8.2)
[2023-12-19 10:55] LABS: Influenza A, PCR NEGATIVE (NEGATIVE); Influenza B, PCR NEGATIVE (NEGATIVE); Resp Syncytial Virus, PCR NEGATIVE (NEGATIVE); SARS-Cov-2 (COVID-19) PCR, MMC NEGATIVE (NEGATIVE)
[2023-12-19 12:50] LABS: Source, Urine Clean Catch
[2023-12-19 12:54] LABS: Appearance, Urine Clear (Clear); Blood, Urine Neg (Neg); Color, Urine Amber (P-Yellow); Glucose Qualitative, Urine Neg (Neg); Ketones, Urine 1+ (Neg); Leukocyte Esterase, Urine 1+ (Neg); Nitrite, Urine Neg (Neg); Protein, Urine 2+ (Neg); Specific Gravity, Urine 1.005 (1.003-1.022); Urobilinogen, Urine 2+ (Normal); pH, Urine 6.5 (5.0-8.0)
[2023-12-19 13:06] LABS: Bilirubin, Urine 1+ (Neg)
[2023-12-19 13:07] LABS: Red Blood Cells, Urine 0-2 /hpf (0-2); Squamous Epithelial Cells Few /hpf (Few)
[2023-12-19 13:08] LABS: Bacteria Few /hpf; Mucus Light (0-Heavy)
[2023-12-19] MEDS ORDERED: CefTRIAXone Sodium 1,000 MG in NS 50 ML IV ONE (13:30)
[2023-12-19] MEDS ORDERED: FentaNYL Citrate 50 MCG/ML 2 ML Injection IV PRN (16:00)
[2023-12-19] MEDS ORDERED: Ondansetron HCl 2 MG / ML 2ML Vial IV PRN (16:00)
[2023-12-19] MEDS ORDERED: Lactated Ringer's 1,000 ML IV SCH (16:05)
[2023-12-19] MEDS ORDERED: Pantoprazole Sodium 40 MG Injection IV SCH (16:30)
--- NOTE | 2023-12-19 18:35 | NUR ---
ASSUMPTION OF CARE/ SHIFT SUMMARY PATIENT ARRIVED TO ICU FROM ED AT 1800. PATIENT ALERT AND ORIENTED X 4. TEMP 99.3 DEGREES FAHRENHEIT. PATIENT PLEASANT AND COOPERATIVE. PATIENT GIVEN PRN FENTANYL FOR COMPLAINTS OF 10/10 PAIN IN LOWER BACK, LEGS AND FEET THAT HE STATED THIS AM. PATIENT SATTING 90% AND GREATER ON RA. PATIENT IN SR, HR 80S TO 90S. SBP 90S TO 120S. PATIENT ON LEVOPHED AT 3 MCG/ MINUTE. GI WNL. PATIENT EATING DINNER IN BED AT THIS TIME. PATIENT REPORTS BURNING WITH URINATION AND BLOOD IN URINE TODAY BUT HAS NOT VOIDED YET THIS SHIFT. ED RN REPORTS PATIENT ONLY VOIDED 100 MLS IN ED. LR INFUSING AT 125 MLS/ HOUR. PATIENT ORIENTED TO UNIT, ROOM AND CALL LIGHT. BED LOW, CALL LIGHT IN REACH. WILL GIVE RAILWAY TRACK WORKER RN REPORT SHORTLY.
[2023-12-19 19:30] LABS: U Amphetamine Screen DETECTED; U Barbituate Screen Not Detected; U Benzodiazapine Screen Not Detected; U Buprenorphine Screen Not Detected; U Cannabinoids Screen DETECTED; U Cocaine Screen Not Detected; U Methadone Screen Not Detected; U Methamphetamine Screen DETECTED; U Opiates Screen Not Detected; U Oxycodone Screen Not Detected; U Phencyclidine Screen Not Detected
--- NOTE | 2023-12-19 20:43 | NUR ---
ASSUME CARE PT RESTING IN BED, AWAKE AND ORIENTED. PT REQUESTING FOOD AND TOLERATING FOOD AND WATER WELL AT THIS TIME. PT LEVOPHED ON 3 MCG DURING BSSR, REDUCED TO 2MCG, SEE FLOWSHEET. PT DOES ENDORSE ONGOING PAIN IN LEGS AND BACK AT THIS TIME, PT DID RECEIVE PAIN MEDICATION ON DAY SHIFT, UNABLE TO RECEIVE SECOND DOSE AT THIS TIME. PT STATES IT SOMETIMES FEELS THOUGH "SHINS ARE BEING SPLIT APART" AND DOES STATE THAT THERE IS ALTERATION OF SENSATION IN LOWER EXTREMITIES WITH THE LANGFORD/LEG PAIN. PT IS ABLE TO MOVE SELF WELL IN BED WITH NO ASSISTANCE. PT PLEASANT AND COOPERATIVE, ABLE TO MAKE NEEDS KNOWN. PLANS TO TITRATE DOWN/OFF LEVOPHED OVERNIGHT.
[2023-12-20] VITALS (27 sets, daily range): BP systolic 95–119; BP diastolic 49–75
[2023-12-20] MEDS ORDERED: MetroNIDAZOLE 500MG/NS 100 ml 100 ML IV SCH
[2023-12-20] MEDS ORDERED: SUMAtriptan succinate 50 MG Tab PO ONE (00:05)
[2023-12-20 04:16] LABS: BASOPHILS ABSOLUTE AUTO 0.02 K/mm3 (0.00-0.23); BASOPHILS PERCENT AUTO 0 % (0-2); EOSINOPHILS ABSOLUTE AUTO 0.06 K/mm3 (0.00-0.68); EOSINOPHILS PERCENT AUTO 1 % (0-6); Hematocrit 35.6 % (37.0-53.0); Hemoglobin 11.8 g/dL (13.5-17.5); IMMATURE GRAN ABSOLUTE AUTO 0.05 K/mm3 (0.00-0.10); IMMATURE GRAN PERCENT AUTO 1 % (0-1); LYMPHOCYTES ABSOLUTE AUTO 1.36 K/mm3 (0.84-5.20); LYMPHOCYTES PERCENT AUTO 16 % (21-46); MONOCYTES ABSOLUTE AUTO 0.65 K/mm3 (0.16-1.47); MONOCYTES PERCENT AUTO 8 % (4-13); Mean Corpuscular HGB 29.9 pg (26.0-34.0); Mean Corpuscular HGB Conc 33.1 g/dL (31.5-36.5); Mean Corpuscular Volume 90 fL (80-100); Mean Platelet Volume 10.8 fL (9.1-12.4); NEUTROPHILS ABSOLUTE AUTO 6.51 K/mm3 (1.96-9.15); NEUTROPHILS PERCENT AUTO 75 % (41-73); Platelet Count 88 K/mm3 (150-400); RDW Coefficient Variation 14.6 % (11.7-14.2); RDW Standard Deviation 47.9 fL (35.1-46.3); Red Blood Cell Count 3.95 M/mm3 (4.30-5.90); White Blood Cell Count 8.65 K/mm3 (4.00-11.30)
[2023-12-20 04:33] LABS: Albumin, Blood 2.4 g/dL (3.4-5.0); Albumin/Globulin Ratio 0.9 (0.8-1.8); Bilirubin, Total 0.8 mg/dL (0.1-1.0); Bun/Creatinine Ratio 24.1 (12.0-20.0); Calcium, Blood 7.6 mg/dL (8.5-10.1); Creatinine, Blood 0.91 mg/dL (0.60-1.20); Globulin, Blood 2.8 g/dL (2.2-4.0); Potassium, Blood 3.7 mmol/L (3.5-5.5); Total Protein, Blood 5.2 g/dL (6.4-8.2)
--- NOTE | 2023-12-20 06:21 | NUR ---
SHIFT SUMMARY PT CONTINUES TO C/O PAIN OVERNIGHT, STATES THAT FENTANYL "HELPS TAKE THE EDGE OFF BUT IT DOES NOT LAST LONG." PT REQUESTED DILAUDID OR OXYCODONE, WHICH IS NOT ORDERED FOR PT. PT DID CONTINUE TO RECEIVE FENTANYL DOSES ORDERED PER PT REQUEST. PT DID NOT SLEEP MUCH OVERNIGHT, BUT WAS NOT RESTLESS. ABLE TO TITRATE OFF LEVO AND REMAIN OFF LEVO, SEE FLOWSHEET. PT REMAINS WITH LR 150ML/HR INFUSING. PINKISH BRUISING ABOVE RIGHT AC PIV SEEMS IMPROVED SINCE CONTINUOUS INFUSIONS WERE MOVED TO LEFT PIV. PT REQUESTED MANY SNACKS OVERNIGHT, APPETITE EXCELLENT. PT ALSO CONTINUES TO TOLERATE LIQUID PO INTAKE. PT DID NOT HAVE A BM OVERNIGHT, USED URINAL TWICE INDEPENDENTLY AFTER SETUP WITH KRISTEL COLORED CONCENTRATED URINE. PT REMAINS COOPERATIVE AND CALM.
--- NOTE | 2023-12-20 07:07 | NUR ---
PT AMA PT WAS NOTED TO BE DISCONNECTED FROM MONITOR. UPON ENTERING ROOM RN NOTED PT GETTING DRESSED. PT STATED NEEDING TO LEAVE, PT CLAIMS HAS A JOB TO GET TO THIS MORNING BY 10AM. MEDICAL AND SCIENTIFIC ILLUSTRATOR HEIDI NOTIFIED, AMA PAPERWORK GATHERED. PT GATHERED ALL BELONGINGS INCLUDING PT BELONGS BAG, CLOTHING, AND BOOTS. MD GALLEGOS NOTIFIED VIA TELEPHONE AT 0654. PT SIGNED AMA FORM, FORM IS WITH PT CHART. PT PIV'S DC'D AT THIS TIME. PT SITTING IN CHAIR IN ICU 9 DURING CHANGE OF SHIFT. PT LEFT UNIT AT 0718 WITH BELONGINGS.
[2023-12-20] MEDS ORDERED: CefTRIAXone Sodium 1,000 MG in NS 100 ML IV SCH (18:00)
[2023-12-21] MEDS ORDERED: LIDO700A20 TOP (03:49)
== END 2023-12-20 07:20 | disposition left against medical advice (07) | DRG 871 ==
LOC: ER 07:40 → ICUE 17:32
PROVIDERS: Emergency Medicine; Physician Assistant; ADMIT Family Medicine
PROC: 3E03329 Introduction of Other Anti-infective into Peripheral Vein, Percutaneous Approach (ICD-10-PCS; principal; 2023-12-19)
PROC: 3E033XZ Introduction of Vasopressor into Peripheral Vein, Percutaneous Approach (ICD-10-PCS; 2023-12-19)
DX: A41.9 Sepsis, unspecified organism (principal); R65.21 Severe sepsis with septic shock; N39.0 Urinary tract infection, site not specified; Z59.00 Homelessness unspecified; B19.20 Unspecified viral hepatitis C without hepatic coma; F17.210 Nicotine dependence, cigarettes, uncomplicated; F15.90 Other stimulant use, unspecified, uncomplicated; K52.9 Noninfective gastroenteritis and colitis, unspecified; D69.6 Thrombocytopenia, unspecified; R94.5 Abnormal results of liver function studies; Z53.29 Procedure and treatment not carried out because of patient's decision for other reasons; Z88.0 Allergy status to penicillin; Z91.038 Other insect allergy status; Z98.890 Other specified postprocedural states
CPT/HCPCS: 0241U; 36415; 74177; 80053; 81001; 83605; 83690; 84145; 85025; 87086; 96361; 96365-59; 96367; 96375; 99285-25; A9270; C9113; J0696; J1885; J2405; J3010; J7030; J7060; J7120; Q9967

== ENCOUNTER 2023-12-20 21:45 | Emergency (ER) | payer OTHER ==
[~2023-12-20] VITALS: Ht 170.2 cm; Wt 65.8 kg
[2023-12-21 01:35] LABS: BASOPHILS ABSOLUTE AUTO 0.02 K/mm3 (0.00-0.23); BASOPHILS PERCENT AUTO 0 % (0-2); EOSINOPHILS PERCENT AUTO 1 % (0-6); Hematocrit 36.8 % (37.0-53.0); Hemoglobin 12.4 g/dL (13.5-17.5); IMMATURE GRAN ABSOLUTE AUTO 0.02 K/mm3 (0.00-0.10); IMMATURE GRAN PERCENT AUTO 0 % (0-1); LYMPHOCYTES ABSOLUTE AUTO 1.56 K/mm3 (0.84-5.20); LYMPHOCYTES PERCENT AUTO 21 % (21-46); MONOCYTES ABSOLUTE AUTO 0.67 K/mm3 (0.16-1.47); MONOCYTES PERCENT AUTO 9 % (4-13); Mean Corpuscular HGB 29.5 pg (26.0-34.0); Mean Corpuscular HGB Conc 33.7 g/dL (31.5-36.5); Mean Corpuscular Volume 87 fL (80-100); Mean Platelet Volume 9.8 fL (9.1-12.4); NEUTROPHILS ABSOLUTE AUTO 5.08 K/mm3 (1.96-9.15); NEUTROPHILS PERCENT AUTO 68 % (41-73); Platelet Count 102 K/mm3 (150-400); RDW Coefficient Variation 13.6 % (11.7-14.2); RDW Standard Deviation 43.7 fL (35.1-46.3); Red Blood Cell Count 4.21 M/mm3 (4.30-5.90); White Blood Cell Count 7.45 K/mm3 (4.00-11.30)
[2023-12-21 02:04] LABS: Albumin, Blood 2.9 g/dL (3.4-5.0); Albumin/Globulin Ratio 0.9 (0.8-1.8); Bilirubin, Total 0.7 mg/dL (0.1-1.0); Calcium, Blood 8.8 mg/dL (8.5-10.1); Creatinine, Blood 0.75 mg/dL (0.60-1.20); Globulin, Blood 3.2 g/dL (2.2-4.0); Potassium, Blood 3.9 mmol/L (3.5-5.5); Total Protein, Blood 6.1 g/dL (6.4-8.2)
[2023-12-21 02:52] VITALS: BP 128/67
[2023-12-21 03:31] LABS: Source, Urine Clean Catch
[2023-12-21 03:36] LABS: Bilirubin, Urine Neg (Neg); Blood, Urine Neg (Neg); Glucose Qualitative, Urine Neg (Neg); Ketones, Urine Neg (Neg); Leukocyte Esterase, Urine Neg (Neg); Nitrite, Urine Neg (Neg); Protein, Urine Neg (Neg); Urobilinogen, Urine NORM (Normal)
[2023-12-21 03:43] LABS: Appearance, Urine Clear (Clear); Color, Urine Yellow (P-Yellow)
[2023-12-21] MEDS ORDERED: LIDO700A20 TOP (03:49)
== END 2023-12-21 04:01 | disposition home or self-care (01) ==
LOC: ER 21:45
PROVIDERS: Emergency Medicine
DX: S39.012A Strain of muscle, fascia and tendon of lower back, initial encounter (principal); F15.10 Other stimulant abuse, uncomplicated; R74.01 Elevation of levels of liver transaminase levels; X58.XXXA Exposure to other specified factors, initial encounter; Z91.030 Bee allergy status; Z88.2 Allergy status to sulfonamides
CPT/HCPCS: 80053; 81003; 83605; 85025; 99283

== ENCOUNTER 2024-04-21 13:32 | Emergency (ER) | payer OTHER ==
[~2024-04-21] VITALS: Ht 170.2 cm; Wt 63.5 kg
[~2024-04-21 13:32] MED LIST changes: +Cephalexin250 MG/5 M PO; +LIDO700A20 TOP
[2024-04-21 13:35] VITALS: BP 135/89
[2024-04-21] MEDS ORDERED: OLANZapine 10 MG Tab PO ONE (13:40)
== END 2024-04-21 13:50 | disposition home or self-care (01) ==
LOC: ER 13:32
DX: R41.82 Altered mental status, unspecified (principal); F15.10 Other stimulant abuse, uncomplicated; F19.10 Other psychoactive substance abuse, uncomplicated; Z87.891 Personal history of nicotine dependence; Z88.0 Allergy status to penicillin; Z91.038 Other insect allergy status
CPT/HCPCS: 99282; A9270

== ENCOUNTER 2024-06-23 00:59 | Emergency (ER) | payer OTHER ==
[~2024-06-23] VITALS: Ht 175.3 cm; Wt 65.8 kg
[2024-06-23 01:15] LABS: BASOPHILS ABSOLUTE AUTO 0.04 K/mm3 (0.00-0.23); BASOPHILS PERCENT AUTO 1 % (0-2); EOSINOPHILS ABSOLUTE AUTO 0.09 K/mm3 (0.00-0.68); EOSINOPHILS PERCENT AUTO 1 % (0-6); Hemoglobin 13.5 g/dL (13.5-17.5); LYMPHOCYTES PERCENT AUTO 33 % (21-46); MONOCYTES ABSOLUTE AUTO 0.65 K/mm3 (0.16-1.47); MONOCYTES PERCENT AUTO 8 % (4-13); Mean Corpuscular HGB 30.3 pg (26.0-34.0); Mean Corpuscular HGB Conc 34.6 g/dL (31.5-36.5); Mean Corpuscular Volume 87 fL (80-100); Mean Platelet Volume 9.6 fL (9.1-12.4); NEUTROPHILS ABSOLUTE AUTO 4.78 K/mm3 (1.96-9.15); NEUTROPHILS PERCENT AUTO 58 % (41-73); Platelet Count 168 K/mm3 (150-400); RDW Coefficient Variation 13.1 % (11.7-14.2); Red Blood Cell Count 4.46 M/mm3 (4.30-5.90); White Blood Cell Count 8.28 K/mm3 (4.00-11.30)
[2024-06-23] MEDS ORDERED: Ondansetron HCl 2 MG / ML 2ML Vial IV ONE (01:40)
[2024-06-23] MEDS ORDERED: Lactated Ringer's 1,000 ML IV ONE (01:40)
[2024-06-23] MEDS ORDERED: Ketorolac Tromethamine 15mg Vial IV ONE (01:40)
[2024-06-23 01:47] LABS: Albumin, Blood 3.6 g/dL (3.4-5.0); Bun/Creatinine Ratio 18.3 (12.0-20.0); Calcium, Blood 8.6 mg/dL (8.5-10.1); Creatinine, Blood 0.93 mg/dL (0.60-1.20); Globulin, Blood 3.5 g/dL (2.2-4.0); Potassium, Blood 3.7 mmol/L (3.5-5.5); Total Protein, Blood 7.1 g/dL (6.4-8.2)
[2024-06-23 02:44] LABS: Influenza A, PCR NEGATIVE (NEGATIVE); Influenza B, PCR NEGATIVE (NEGATIVE); Resp Syncytial Virus, PCR NEGATIVE (NEGATIVE); SARS-Cov-2 (COVID-19) PCR, MMC NEGATIVE (NEGATIVE)
[2024-06-23 04:45] VITALS: BP 96/64
[2024-06-23 04:49] LABS: Source, Urine Clean Catch
[2024-06-23 04:59] LABS: Appearance, Urine Clear (Clear); Bilirubin, Urine Neg (Neg); Blood, Urine Neg (Neg); Color, Urine Yellow (P-Yellow); Glucose Qualitative, Urine Neg (Neg); Ketones, Urine Neg (Neg); Leukocyte Esterase, Urine Neg (Neg); Nitrite, Urine Neg (Neg); Protein, Urine Neg (Neg); Urobilinogen, Urine 1+ (Normal)
[2024-06-23 05:10] LABS: U Amphetamine Screen DETECTED; U Barbituate Screen Not Detected; U Cannabinoids Screen DETECTED; U Methamphetamine Screen DETECTED
[2024-06-23 05:11] LABS: U Benzodiazapine Screen Not Detected; U Buprenorphine Screen Not Detected; U Cocaine Screen Not Detected; U Methadone Screen Not Detected; U Opiates Screen Not Detected; U Oxycodone Screen Not Detected; U Phencyclidine Screen Not Detected
== END 2024-06-23 05:57 | disposition home or self-care (01) ==
LOC: ER 00:59
PROVIDERS: Student in an Organized Health Care Education/Training Program
DX: R53.81 Other malaise (principal); F15.10 Other stimulant abuse, uncomplicated; Z88.0 Allergy status to penicillin; Z91.030 Bee allergy status; Z87.891 Personal history of nicotine dependence
CPT/HCPCS: 0241U; 80053; 81003; 85025; 96361; 96374; 96375; 99284-25; J1885; J2405; J7120

== ENCOUNTER 2024-11-22 16:00 | Observation (INO) | payer OTHER ==
[~2024-11-22] VITALS: Ht 170.2 cm; Wt 63.0 kg
[2024-11-22 17:24] LABS: BASOPHILS ABSOLUTE AUTO 0.02 K/mm3 (0.00-0.23); BASOPHILS PERCENT AUTO 0 % (0-2); EOSINOPHILS ABSOLUTE AUTO 0.06 K/mm3 (0.00-0.68); EOSINOPHILS PERCENT AUTO 1 % (0-6); Hematocrit 40.9 % (37.0-53.0); Hemoglobin 14.2 g/dL (13.5-17.5); IMMATURE GRAN PERCENT AUTO 0 % (0-1); LYMPHOCYTES ABSOLUTE AUTO 2.21 K/mm3 (0.84-5.20); LYMPHOCYTES PERCENT AUTO 36 % (21-46); MONOCYTES PERCENT AUTO 7 % (4-13); Mean Corpuscular HGB 30.2 pg (26.0-34.0); Mean Corpuscular HGB Conc 34.7 g/dL (31.5-36.5); Mean Corpuscular Volume 87 fL (80-100); Mean Platelet Volume 9.8 fL (9.1-12.4); NEUTROPHILS ABSOLUTE AUTO 3.47 K/mm3 (1.96-9.15); NEUTROPHILS PERCENT AUTO 56 % (41-73); Platelet Count 153 K/mm3 (150-400); RDW Coefficient Variation 12.9 % (11.7-14.2); RDW Standard Deviation 40.6 fL (35.1-46.3); White Blood Cell Count 6.16 K/mm3 (4.00-11.30)
[2024-11-22 17:52] LABS: Ethanol (Alcohol), Blood, Med <3 mg/dL
[2024-11-22 17:53] LABS: Acetaminophen, Random <2.0 ug/mL (10.0-30.0); Alanine Aminotransfer (ALT/SGP 42 U/L (12-78); Albumin, Blood 3.9 g/dL (3.4-5.0); Albumin/Globulin Ratio 1.2 (0.8-1.8); Alk Phos 60 U/L (50-136); Anion Gap 9 mmol/L (3-11); Aspartate Aminotrans (AST/SGOT 32 U/L (12-37); Bilirubin, Total 1.3 mg/dL (0.1-1.0); Blood Urea Nitrogen 15 mg/dL (8-24); Bun/Creatinine Ratio 22.6 (12.0-20.0); CO2, Blood 23 mmol/L (21-32); Calcium, Blood 9.1 mg/dL (8.5-10.1); Chloride, Blood 111 mmol/L (98-108); Creatinine, Blood 0.67 mg/dL (0.60-1.20); Globulin, Blood 3.2 g/dL (2.2-4.0); Glomerular Filtration Rate 126 (60-); Glucose, Blood 97 mg/dL (70-99); Potassium, Blood 3.9 mmol/L (3.5-5.5); Salicylate <1.7 mg/dL (2.8-20.0); Sodium, Blood 139 mmol/L (136-145); Total Protein, Blood 7.1 g/dL (6.4-8.2)
[2024-11-23 07:29] LABS: Source, Urine Clean Catch
[2024-11-23 07:43] LABS: Appearance, Urine Clear (Clear); Bilirubin, Urine Neg (Neg); Blood, Urine Neg (Neg); Color, Urine Yellow (P-Yellow); Glucose Qualitative, Urine Neg (Neg); Ketones, Urine Neg (Neg); Leukocyte Esterase, Urine Neg (Neg); Nitrite, Urine Neg (Neg); Protein, Urine Neg (Neg); Urobilinogen, Urine NORM (Normal)
[2024-11-23 07:57] LABS: U Amphetamine Screen DETECTED; U Barbituate Screen Not Detected; U Benzodiazapine Screen Not Detected; U Buprenorphine Screen Not Detected; U Cannabinoids Screen DETECTED; U Cocaine Screen Not Detected; U Methadone Screen Not Detected; U Methamphetamine Screen DETECTED; U Opiates Screen Not Detected; U Oxycodone Screen Not Detected; U Phencyclidine Screen Not Detected
[2024-11-23 10:38] VITALS: BP 122/75
== END 2024-11-23 15:00 | disposition other institution (70) ==
LOC: ER 16:00 → EOR 16:01
PROVIDERS: Physician Assistant; ADMIT Student in an Organized Health Care Education/Training Program
DX: F33.2 Major depressive disorder, recurrent severe without psychotic features (principal); R45.851 Suicidal ideations; F15.20 Other stimulant dependence, uncomplicated; Z87.891 Personal history of nicotine dependence; Z88.0 Allergy status to penicillin; Z88.1 Allergy status to other antibiotic agents; Z91.038 Other insect allergy status; Z86.19 Personal history of other infectious and parasitic diseases; Z59.00 Homelessness unspecified
CPT/HCPCS: 80053; 80320; 81003; 83036; 84443; 85025; 86592; 93005; 93010; 99285-25; G0378; G0480

== ENCOUNTER 2024-11-23 11:52 | Inpatient (IN) | payer OTHER ==
[~2024-11-23] VITALS: Ht 167.6 cm; Wt 63.0 kg
[2024-11-23] MEDS ORDERED: Acetaminophen 325 MG TABLET PO PRN (13:20)
[2024-11-23] MEDS ORDERED: Calcium Carbonate 500 MG Tab Chew PO PRN (13:20)
[2024-11-23] MEDS ORDERED: Ibuprofen 600 MG Tab PO PRN (13:20)
[2024-11-23] MEDS ORDERED: HydrOXYzine Pamoate 50 MG Cap PO PRN (13:20)
[2024-11-23] MEDS ORDERED: OLANZapine ODT 10 MG Tab MM PRN (13:20)
[2024-11-23] MEDS ORDERED: Aluminum Hydroxide 320MG/5ML 473 ML PO PRN (13:20)
[2024-11-23] MEDS ORDERED: Polyethylene Glycol 3350 17 gm PO PRN (13:25)
[2024-11-23] MEDS ORDERED: TraZODone HCl 50 MG Tab PO PRN (13:25)
[2024-11-23] MEDS ORDERED: Melatonin 3 MG Tab PO PRN (13:25)
[2024-11-23] MEDS ORDERED: Ondansetron 4 MG SoluTab MM PRN (13:35)
[2024-11-23] MEDS ORDERED: ARIPiprazole 10 MG Tab PO SCH (14:00)
[2024-11-23 15:12] VITALS: BP 110/72
[2024-11-23 15:13] VITALS: BP 110/72
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
[2024-11-23 20:27] VITALS: BP 107/79
--- NOTE | 2024-11-24 04:15 | NUR ---
SHIFT SUMMARY: PATIENT WAS IN BED RESTING WITH EYES CLOSED AT THE BEGINNING OF THE SHIFT. HE AWAKENED TO RN INTRODUCING SELF. HE ANSWERED QUESTIONS WITH ONE WORD, OR NOT AT ALL. HE DECLINED OFFER OF SNACK AT 1999, BUT DID COME OUT LATER TO HAVE A CUP FOR WATER. HE DID NOT WANT HIS PRN TRAZODONE OR MELATONIN, BUT LATER DECIDED TO TRY THEM. HE WAS ASSURED THAT IF HE DID NOT SLEEP AFTER TAKING THEM, HE COULD COME TO NURSING STATION TO ASK FOR SOMETHING MORE (ANOTHER TRAZODONE COULD BE TAKEN 30 MINUTES LATER, WHICH HE DID NOT NEED). HE THEN WAS NOTED TO BE RESTING QUIETLY WITH EYES CLOSED AND RESPIRATIONS CONFIRMED FOR MOST OF THE REMAINDER OF THE SHIFT. HE DID AWAKEN AT TIMES DURING ROOM SAFETY CHECKS, AND ASKED MHA TO CLOSE THE DOOR. HE DID NOT GET UP. HE HAD NO S/SX OF SUICIDAL IDEATION OR SELF HARM THIS SHIFT. CONTINUING TO MONITOR FOR SAFETY WITH Q15 MINUTE CHECKS.
[2024-11-24 08:28] VITALS: BP 126/84
[2024-11-24] MEDS ORDERED: buPROPion HCL 150 MG TAB.SR.12H PO SCH (09:00)
[2024-11-24] MEDS ORDERED: Multivitamins 1 Tab PO SCH (09:00)
[2024-11-24 09:28] VITALS: BP 110/72
--- NOTE | 2024-11-24 09:51 | NUR ---
PT A/O X3. STATES THAT HE IS SI AND HI. HE WANTS TO KILL EVERYBODY ESPECIALLY THE POLICE AND GOVERNMENT PEOPLE. DOES PARTICIPATE IN INTERVIEW WITH ANGER IN HIS VOICE. PT CAN BE UNPREDICTIVE HE STATES AND TO WATCH "FOR IT". MOSTLY 1 WORD AND QUICK ANSWER WHEN TALKING WITH HIM. BECOMES IRRITABLE WHEN INTERACTING/ENGAGED BUT TO ONLY HIS IDEA OF THOUGHT. MOTHER CALLED TODAY TO CHECK ON PT AND HE SAID HE WOULD CALL HER BACK LATER. PT JAUST WANTS TO BE LEFT ALONE TO "sleep". WILL CONTINUE TO MONITOR.
[2024-11-24 10:18] LABS: Free Thyroxine 0.89 ng/dL (0.70-1.60); Thyroxine (T4) 6.8 ug/dL (4.5-12.1)
[2024-11-24 10:19] LABS: Triiodothyronine, Free 1.82 pg/mL (2.18-3.98)
--- NOTE | 2024-11-24 11:01 | NUR ---
DR KANG NOTIFIED FOR CONSULT OF THYROID PER REQUEST OF DR BERNARD.
--- NOTE | 2024-11-24 14:14 | NUR ---
DR PARIS SEEN PT AT APPROX. 1230. FOR CONSULT ON THYROID. NO ORDERS GIVEN AT THIS TIME. EKG COMPLETED. WILL CONTINUE TO MONITOR. PT WANTS TO SLEEP
--- NOTE | 2024-11-24 17:17 | NUR ---
SHIFT SUMMARY: PT A/O X4. PT SI AND HI. DENIES AVH. WANTS TO KILL THE GOVERNMENT WORKERS AND POLICE. PLAN OF SI IS TO HANG WITH ROPE. PT HAS SLEPT THROUGH THE DAY. UP FOR MEALS AND COMPLIANT WITH MEDS. WILL CONVERSE OF 1-2 WORDS WITH ANGER TONE PRESENT. A LITTLE LESS ANGER AT THE END OF THIS SHIFT WITH VERBAL RETURN. WILL CONTINUE TO MONITOR.
[2024-11-24 20:45] VITALS: BP 107/62
--- NOTE | 2024-11-25 04:30 | NUR ---
SHIFT SUMMARY PATIENT SLEEPING AT BEGINNING OF SHIFT AWAKE FOR SNACK AND SHOWER, THEN BACK TO BED. DENIES SI, HI, AVH. FLAT AFFECT. COOPERATIVE WITH MEDICATIONS. SLEEPING T/O NIGHT WITH RESP EVEN AND UNLABORED. CONTINUE TO MONITOR Q15MIN
[2024-11-25 08:01] VITALS: BP 130/92
--- NOTE | 2024-11-25 08:50 | NUR ---
PATIENT VERBALIZES THOUGHTS OF SELF HARM AND HOMICIDAL THOUGHTS. STATES HE WANTS TO KILL HIMSELF AND EVERYBODY ELSE R/T BEING TIRED AND FRUSTRATED. STATES MEDS ARE NOT HELPING AND DOESN'T FEEL ANY DIFFERENT THAN 2 DAYS AGO. WANTS TO STAY IN ROOM AND SLEEP AT THIS TIME. DECLINES TO PARTICIPATE IN GROUP.
--- NOTE | 2024-11-25 10:40 | NUR ---
PT UP FOR GROUP SESSION AT THIS TIME - PAINTING.
--- NOTE | 2024-11-25 11:10 | NUR ---
PT WANTS TO LEAVE AND GO HOME. NOTIFIED AND STATED "TOMORROW" PT IS NOT ON A HOLD, PT INSISTS ON WANTING TO LEAVE NOW. NOTIFIED.
--- NOTE | 2024-11-25 11:25 | NUR ---
MD CAME TO SEE PATIENT AND SPOKE WITH HIM. PT AGREES TO STAY ONE MORE DAY.
--- NOTE | 2024-11-25 11:30 | NUR ---
IMPORTANT INSURANCE INFORMATION Medical eligibility to assess patient for [facility] ([facility]) on Tuesday, November 26, 2024
--- NOTE | 2024-11-25 15:47 | NUR ---
PT HAS VISITORS AT THIS TIME
[2024-11-25] MEDS ORDERED: buPROPion HCL 150 MG TAB.SR.12H PO SCH (17:00)
--- NOTE | 2024-11-25 17:34 | NUR ---
SHIFT SUMMARY: PT HAS CONTINUED TO DECLINE TO PARTICIPATE IN GROUP ACTIVITIES THROUGHOUT THE DAY. HIS MOTHER DID COME TO VISIT AND PATIENT WAS MORE RECEPTIVE TO INTERACTING WITH STAFF AND TAKING MEDICATIONS AFTER VISIT WITH HER. PT MADE EYE CONTACT WITH THIS RN FOR FIRST TIME DURING EVENING MED PASS. EXPRESSES NO CONCERNS OR NEEDS AT THIS TIME. CONTINUE EVERY 15 MIN OBSERVATIONS FOR SAFETY.
[2024-11-25 20:17] VITALS: BP 119/91
--- NOTE | 2024-11-26 06:20 | NUR ---
SHIFT SUMMARY Pt is A&O, calm, cooperative, eye contact was appropriate. Pt stated that his mood was "okay, pretty good," affect is constricted. Pt denies SI, HI, and hallucinationos, adding "I don't want to kill anybody anymore." Pt denies current pain. Pt spent the shift in his room, but came out for snack, VS, and meds. He received PRN melatonin with his HS meds. Staff continues to monitor q15m for safety and wellness.
[2024-11-26 07:20] VITALS: BP 121/89
[2024-11-26] MEDS ORDERED: ABILIFY MYCITE10 M2 PO (12:44)
[2024-11-26] MEDS ORDERED: Budeprion Xl300 MG PO (12:51)
[2024-11-26] MEDS ORDERED: MELA3 PO (12:52)
[2024-11-26] MEDS ORDERED: TRAZ50 PO (12:53)
[2024-11-26] MEDS ORDERED: NICO2 PO (14:37)
--- NOTE | 2024-11-26 14:45 | NUR ---
IMPORTANT DISCHARGE INFORMATION PATIENT'S SISTER OR MOTHER WILL BE PICKING HIM UP TODAY: CHRISTINA (SISTER) [phone] FOLLOW UP/RICH APPOINTMENT WITH DR. RICKETTS AT [facility] 12/03/24 AT 1:40PM PHARMACY: [facility] PATIENT CURRENTLY AN OPEN CARD, SNAP ENROLLED TODAY. 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 [facility], [id number]
--- NOTE | 2024-11-26 15:24 | NUR ---
DISCHARGE PT A/O X4; DENIES SI OR HI. PT EDUCATED ON FOLLOW UP APPOINTMENTS/RESOURCES POST DISCHARGE. MEDICATIONS FAXED TO [facility]. PT PREFERS TO WALK TO [facility] TO GET INFORMATION ON HIS CAR RATHER THAN WAIT FOR A RIDE FROM PHARMACY. PT EXPRESSED UNDERSTANDING OF DISCHARGE INSTRUCTIONS. BELONGINGS RETURNED TO PT AND PT LEFT UNIT AT 1522.
[2024-11-28 00:14] LABS: TRIIODOTHYRONINE, REVERSE TMS 14.1 ng/dL (9.0-27.0)
== END 2024-11-26 15:22 | disposition home or self-care (01) | DRG 885 ==
LOC: BHU 11:52
PROVIDERS: ADMIT Student in an Organized Health Care Education/Training Program
DX: F33.2 Major depressive disorder, recurrent severe without psychotic features (principal); Z59.00 Homelessness unspecified; E05.90 Thyrotoxicosis, unspecified without thyrotoxic crisis or storm; F15.90 Other stimulant use, unspecified, uncomplicated; F17.210 Nicotine dependence, cigarettes, uncomplicated; Z88.8 Allergy status to other drugs, medicaments and biological substances; Z88.1 Allergy status to other antibiotic agents; Z91.038 Other insect allergy status; Z88.0 Allergy status to penicillin; Z79.1 Long term (current) use of non-steroidal anti-inflammatories (NSAID)
CPT/HCPCS: 36415; 84436; 84439; 84481; 93005; 93010; A9270

== ENCOUNTER 2024-12-30 19:33 | Emergency (ER) | payer OTHER ==
[~2024-12-30] VITALS: Ht 167.6 cm; Wt 70.3 kg
[~2024-12-30 19:33] MED LIST changes: +ABILIFY MYCITE10 M2 PO; +Budeprion Xl300 MG PO; +MELA3 PO; +NICO2 PO; +TRAZ50 PO
[2024-12-30 19:35] VITALS: BP 163/104
[2024-12-30] MEDS ORDERED: OxyCODONE 5 mg/Acetamin 325 mg TABLET PO ONE (20:10)
[2024-12-30] MEDS ORDERED: Ketorolac Tromethamine 30mg Vial IM ONE (20:50)
== END 2024-12-30 21:03 | disposition home or self-care (01) ==
LOC: ER 19:33
DX: S53.402A Unspecified sprain of left elbow, initial encounter (principal); S29.011A Strain of muscle and tendon of front wall of thorax, initial encounter; V29.99XA Rider (driver) (passenger) of other motorcycle injured in unspecified traffic accident, initial encounter; F15.90 Other stimulant use, unspecified, uncomplicated
CPT/HCPCS: 71045; 73080; 96372; 99284-25; A9270; J1885

== ENCOUNTER 2025-05-30 21:45 | Emergency (ER) | payer OTHER ==
[~2025-05-30] VITALS: Ht 170.2 cm; Wt 65.8 kg
[2025-05-30 22:03] VITALS: BP 129/100
[2025-05-30 22:12] LABS: BASOPHILS ABSOLUTE AUTO 0.03 K/mm3 (0.00-0.23); BASOPHILS PERCENT AUTO 1 % (0-2); EOSINOPHILS ABSOLUTE AUTO 0.08 K/mm3 (0.00-0.68); EOSINOPHILS PERCENT AUTO 2 % (0-6); Hematocrit 43.5 % (37.0-53.0); Hemoglobin 14.7 g/dL (13.5-17.5); IMMATURE GRAN ABSOLUTE AUTO 0.01 K/mm3 (0.00-0.10); IMMATURE GRAN PERCENT AUTO 0 % (0-1); LYMPHOCYTES ABSOLUTE AUTO 1.99 K/mm3 (0.84-5.20); LYMPHOCYTES PERCENT AUTO 42 % (21-46); MONOCYTES ABSOLUTE AUTO 0.30 K/mm3 (0.16-1.47); MONOCYTES PERCENT AUTO 6 % (4-13); Mean Corpuscular HGB Conc 33.8 g/dL (31.5-36.5); Mean Corpuscular Volume 89 fL (80-100); NEUTROPHILS ABSOLUTE AUTO 2.37 K/mm3 (1.96-9.15); NEUTROPHILS PERCENT AUTO 50 % (41-73); NRBC ABSOLUTE 0.00 K/mm3 (0.00-0.02); NRBC Auto 0.0 /100 WBC (0.0-0.2); Platelet Count 157 K/mm3 (150-400); RDW Coefficient Variation 12.8 % (11.7-14.2); RDW Standard Deviation 42.1 fL (35.1-46.3)
[2025-05-30 22:30] LABS: Ethanol (Alcohol), Blood, Med <3 mg/dL; Magnesium, Blood 2.3 mg/dL (1.6-2.4)
[2025-05-30 22:31] LABS: Alanine Aminotransfer (ALT/SGP 81 U/L (12-78); Albumin, Blood 4.0 g/dL (3.4-5.0); Albumin/Globulin Ratio 1.2 (0.8-1.8); Anion Gap 10 mmol/L (3-11); Aspartate Aminotrans (AST/SGOT 71 U/L (12-37); Bilirubin, Total 0.8 mg/dL (0.1-1.0); Blood Urea Nitrogen 24 mg/dL (8-24); CO2, Blood 26 mmol/L (21-32); Calcium, Blood 9.2 mg/dL (8.5-10.1); Chloride, Blood 105 mmol/L (98-108); Creatinine, Blood 0.86 mg/dL (0.60-1.20); Globulin, Blood 3.3 g/dL (2.2-4.0); Glucose, Blood 134 mg/dL (70-99); Phosphorus, Blood 4.4 mg/dL (2.5-4.9); Potassium, Blood 3.6 mmol/L (3.5-5.5); Sodium, Blood 137 mmol/L (136-145); Total Protein, Blood 7.3 g/dL (6.4-8.2)
[2025-05-30] MEDS ORDERED: RX Prepack 2 Sprays Naloxone HCL 4 MG/SPRAY UD ONE (23:45)
== END 2025-05-31 00:07 | disposition home or self-care (01) ==
LOC: ER 21:45
PROVIDERS: Emergency Medicine
DX: T40.411A Poisoning by fentanyl or fentanyl analogs, accidental (unintentional), initial encounter (principal); F17.210 Nicotine dependence, cigarettes, uncomplicated; Z79.899 Other long term (current) drug therapy; Z88.0 Allergy status to penicillin; Z88.1 Allergy status to other antibiotic agents; Z91.030 Bee allergy status
CPT/HCPCS: 71046; 80053; 80320; 83735; 84100; 84484; 85025; 93005; 93010; 99285-25; A9270